=== PATIENT | female | born 1955 | race Caucasian/White ===

== ENCOUNTER 2018-02-17 15:03 | Inpatient (IN) | payer OTHER ==
[~2018-02-17] VITALS: Ht 170.2 cm; Wt 81.6 kg
[2018-02-17 15:17] VITALS: BP_SYST 120
--- NOTE | 2018-02-17 15:23 | NUR ---
Patient to ER bed 04 to gown for evaluation. Side rails up.
--- NOTE | 2018-02-17 15:30 | NUR ---
Patient to ER via triage with c/o LLQ abdominal pain, patient also reports back pain, and pain to both lower extremities. Patient also reports nausea, patient reports symptoms have been going on for the last 3 days. Patient is awake, alert and oriented in no acute distress, vital signs stable, respirations even and unlabored, skin warm and dry to touch. Awaiting evaluation by ER MD, will continue to observe and assess.
[2018-02-17] MEDS ORDERED: NACL 0.9% 1,000 ML IV ONE (15:43)
[2018-02-17] MEDS ORDERED: ONDANSETRON HCL 4 MG/2 ML VIAL IVP ONE (15:45)
--- NOTE | 2018-02-17 15:45 | NUR ---
Dr Bowles at bedside to evaluate patient.
[2018-02-17 16:14] LABS: BASOPHILS % (AUTO) 0.6 % (0.0-2.0); EOSINOPHILS % (AUTO) 0.5 % (0.0-4.0); HEMATOCRIT 27.9 % (36-48); HEMOGLOBIN 8.5 g/dL (12.0-16.0); LYMPHOCYTES # (AUTO) 1.1 K/uL (1.0-5.5); LYMPHOCYTES % (AUTO) 20.1 % (20.5-51.5); MEAN CORPUSCULAR HEMOGLOBIN 21 pg (27-31); MEAN CORPUSCULAR HGB CONC 31 % (32-36); MEAN CORPUSCULAR VOLUME 68 fL (79.0-98.0); MONOCYTES # (AUTO) 0.3 K/uL (0.0-1.0); MONOCYTES % (AUTO) 5.5 % (1.7-9.3); NEUTROPHILS % (AUTO) 73.3 % (40.0-70.0); PLATELET COUNT (AUTO) 353 K/uL (130-430); RED CELL DISTRIBUTION WIDTH 17.8 % (9.0-15.0); WHITE BLOOD COUNT (AUTO) 5.4 K/uL (4.8-10.8)
--- NOTE | 2018-02-17 16:15 | NUR ---
Patient to radiology for films in stable condition via wheelchair.
[2018-02-17 16:21] LABS: CALCIUM 8.9 mg/dL (8.4-11.0); CREATININE 0.89 mg/dL (0.55-1.30); POTASSIUM 4.4 mmol/L (3.5-5.1)
--- NOTE | 2018-02-17 16:25 | NUR ---
Patient back from radiology in stable condition.
[2018-02-17 16:26] LABS: BILIRUBIN,URINE NEGATIVE (NEGATIVE); BLOOD, URINE NEGATIVE (NEGATIVE); CLARITY/URINE CLEAR (CLEAR); COLOR,URINE YELLOW (YELLOW); GLUCOSE,URINE 2+ (NEGATIVE); KETONES,URINE NEGATIVE (NEGATIVE); LEUKOCYTE ESTERASE ,URINE TRACE (NEGATIVE); NITRITE, URINE NEGATIVE (NEGATIVE); PROTEIN URINE NEGATIVE (NEGATIVE); UROBILINOGEN,URINE 0.2 (0.2-1.0)
[2018-02-17 16:27] LABS: ALBUMIN 3.7 g/dL (3.4-4.8); TOTAL BILIRUBIN 1.3 mg/dL (0.0-1.0)
[2018-02-17 16:32] LABS: BACTERIA,URINE MODERATE /HPF (None Seen); HYALINE CASTS, URINE 0-10 /LPF (None Seen); RBC,URINE 0-3 /HPF (0-3)
--- NOTE | 2018-02-17 16:55 | NUR ---
Dr Bowles at bedside speaking with patient/family regarding results and plan of care. Questions answered by Dr Bowles.
--- NOTE | 2018-02-17 17:30 | NUR ---
Patient resting quietly in no acute distress, vital signs stable, respirations even and unlabored, skin warm and dry to touch. Awaiting dispo.
--- NOTE | 2018-02-17 18:30 | NUR ---
Patient resting quietly in no acute distress, went to sign out patient AMA, and now patient states that she is willing to stay for admit now.
[2018-02-17] MEDS ORDERED: NACL 0.9% 1,000 ML IV SCH (19:15)
--- NOTE | 2018-02-17 19:30 | NUR ---
Assessment remains unchanged
--- NOTE | 2018-02-17 19:40 | NUR ---
Patient will be admitted to care of Dr Henyr. Admitted to MS unit. Will go to room 105-A. Belongings list completed. Summary report printed. Report will be given at bedside. Transfer to [facility]. IV present no sign or symptom of infiltration.
[2018-02-17 19:56] VITALS: BP_SYST 120
--- NOTE | 2018-02-17 19:56 | NUR ---
ADMISSION NOTE Received patient from ER via gurney. Patient admitted with diagnosis of Colitis/UTI. Patient is awake, alert, oriented X 4. Patient oriented to hospital room, call light, toileting, pain management and safety-teach back done. Patient informed that CARLOS A Oden will be primary nurse and that their room number is 105A. Personal belongings checked and Belongings List documented. Call light within reach.
[2018-02-17] MEDS ORDERED: metroNIDAZOLE 500 mg/NS 200 ML IV ONE (21:28)
[2018-02-17] MEDS ORDERED: CIPROFLOXACIN LACT 400 MG/D5W 200 ML IV ONE (21:28)
[2018-02-17] MEDS: CIPROFLOXACIN LACT 400 MG/D5W 200 ML IV SCH (21:56)
[2018-02-17] MEDS: metroNIDAZOLE 500 mg/NS 100 ML IV SCH (21:59)
--- NOTE | 2018-02-17 22:06 | NUR ---
Paged Dr. Henry Jefe dialed [phone], s/w Luisana.
[2018-02-17] MEDS ORDERED: MORPHINE 2 MG/ML INJ. SYRINGE IVP PRN (23:00)
[2018-02-17] MEDS ORDERED: LORazepam 2 MG/ML VIAL IVP PRN (23:00)
[2018-02-17] MEDS ORDERED: MORPHINE 4 MG/ML INJ. SYRINGE IVP PRN (23:00)
[2018-02-17] MEDS ORDERED: D5W 1,000 ML IV PRN (23:00)
[2018-02-17] MEDS ORDERED: GLUCOSE 15 GM GEL (in 37.5 GM TUBE) PO PRN ×2 (23:00)
[2018-02-17] MEDS ORDERED: DEXTROSE 50% JECT 50 ML DISP.SYRIN IVP PRN ×2 (23:00)
[2018-02-17] MEDS ORDERED: ONDANSETRON HCL 4 MG/2 ML VIAL IVP PRN (23:00)
[2018-02-17] MEDS: D5/0.45 NS 1,000 ML IV SCH (23:19)
[2018-02-18 00:37] VITALS: BP_SYST 136
--- NOTE | 2018-02-18 01:15 | NUR ---
CONSULT CONSULT CALLED FOR DR. GALAN I SPOKE WITH PAUL RODRIGES REASON FOR CONSULT: UTI REQUESTING CONSULT: DR. RUSS Evans NUMBER I CALLED: [phone]
--- NOTE | 2018-02-18 01:16 | NUR ---
CONSULT CONSULT CALLED FOR DR. GARCIA I SPOKE WITH PAUL RODRIGES REASON FOR CONSULT: COLITIS REQUESTING CONSULT: DR. RUSS Evans
[2018-02-18] MEDS: metroNIDAZOLE 500 mg/NS 100 ML IV SCH ×3 (05:24→21:50)
--- NOTE | 2018-02-18 06:14 | NUR ---
pt,received via the er-dept.pt.had signed ama was to released home.pt.decided to be admitted.pt.presents chronic nam/ll quadrant abdomen pain.pt.presents no nausea.diet status npo:i have explained tot he pt.the npo diet status.pt.presents diabetic hx.pt.presents anemic status;hb.5/hct;27.9.pt.had co dizziness.weakness.i inquired if the pt.presented these symptoms upon the unit.pt.stated she did feel the lightheadedness/weakness. had ordered for the transfusion:2 units:rpbc clarification;to be held.pt.was originally ordered to receive the maintanance iv fluids:ns.; was paged.i apprised that the pt.presents diabetic hx; ordered blood glucose assessed ac/hs.p apprised cristiana the pt.did not utilize insulin:no insulin sliding scale ordered. ordered iv fluids:d5/45 ns:2/t npo diet status;diabetic hx. pt.is ambulatory;w/out assistance;steady gait.pt.supervised gait to the restroom.i have initiated the administration iv fluids:d5/45 ns,the administration of cipro/flagyl initial doses.no c/o pain,nausea.o2 @room air;o2 -sat%=98%.call light/telephone placed w/in the pt's reach.
[2018-02-18 06:28] LABS: HEMATOCRIT 25.6 % (36-48); HEMOGLOBIN 7.7 g/dL (12.0-16.0); MEAN CORPUSCULAR HEMOGLOBIN 21 pg (27-31); MEAN CORPUSCULAR HGB CONC 30 % (32-36); MEAN CORPUSCULAR VOLUME 68 fL (79.0-98.0); PLATELET COUNT (AUTO) 305 K/uL (130-430); RED BLOOD CELL COUNT(AUTO) 3.75 MIL/uL (4.2-6.2); RED CELL DISTRIBUTION WIDTH 17.5 % (9.0-15.0); WHITE BLOOD COUNT (AUTO) 5.1 K/uL (4.8-10.8)
[2018-02-18 06:48] LABS: CALCIUM 8.2 mg/dL (8.4-11.0); CREATININE 0.65 mg/dL (0.55-1.30); POTASSIUM 3.2 mmol/L (3.5-5.1)
--- NOTE | 2018-02-18 07:20 | NUR ---
Opening Note: Patient laying in bed resting, patient denies abdominal pain and discomfort. Breathing is even and unlabored with no distress noted. IV patent and intact. Safety precautions in place; bed in lowest position, wheels locked, side rails x3, bed alarm activated and call light within reach. No current needs. Will continue to monitor.
[2018-02-18 08:43] VITALS: BP_SYST 137
[2018-02-18 08:43] LABS: BAND % (MANUAL) 2 % (0-6); BASOPHILS % (MANUAL) 0 % (0-2); EOSINOPHILS % (MANUAL) 3 % (0-7); LYMPHOCYTES % (MANUAL) 47 % (20-46); MONOCYTES % (MANUAL) 3 % (0-11)
[2018-02-18] MEDS: CIPROFLOXACIN LACT 400 MG/D5W 200 ML IV SCH ×2 (08:45→20:14)
[2018-02-18] MEDS: D5/0.45 NS 1,000 ML IV SCH ×2 (08:46→18:17)
--- NOTE | 2018-02-18 10:05 | NUR ---
Rounding: Patient laying in bed resting. Patient denies pain and discomfort. No current needs. Will continue to monitor.
[2018-02-18] MEDS ORDERED: GOLYTELY / COLYTE SOLUTION 4 LITERS PO ONE (11:00)
[2018-02-18] MEDS ORDERED: BISACODYL 5 MG TABLET.DR (DULCOLAX) PO ONE (11:00)
--- NOTE | 2018-02-18 12:01 | NUR ---
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 Patient speaks Botswanan only. Pt stated, she will be qualify for Medicare with [employer] [facility] by April, but meantime requesting Medi-Hanny and social security benefits. She has no income at all and lives with her other 3 adult children. She has 3 other adult children who are well and alive. (One of 7 children has ). She goes to [place] for her Diabetic medications, Glipizide. She states she has DM II, HTN, and heart problem. She stated she was given Survivor's Benefits and Social Security Benefits November and December 2017 after her but got a letter form Social Security that she did not qualify and benefits stopped since January 2018. Informed YANA Saldivar and she stated Sha, [facility] Liaison, has been made aware and will reach out and contact pt. Pt informed of this and she verbalized understanding and is thankful to staff. Addendum: 02/18/18 at 1220 by Mary Gomez RN Pt and family requesting DPOA form. Form provided in Botswanan and in Turkish to pt.
--- NOTE | 2018-02-18 12:09 | NUR ---
Rounding: Patient laying in bed resting. Patient denies pain and discomfort. Breathing is even and unlabored with no distress noted. Morning medications tolerated well. No current needs. Will continue to monitor.
[2018-02-18 12:17] VITALS: BP_SYST 153
--- NOTE | 2018-02-18 14:06 | NUR ---
IV RE-INSERTION: Complaining of pain to IV site. Restarted on right hand. Successful after 1 attempts. Resumed current IVF of D51/2NS and regulated @ 100 per hour. Will observe for any signs of infiltration.
--- NOTE | 2018-02-18 16:15 | NUR ---
Rounding: Patient laying in bed resting. Daughter at bedside. Patient denies pain and discomfort. Breathing is even and unlabored with no distress noted. No distress noted. Safety precautions in place and call light within reach. No current needs. Will continue to monitor.
[2018-02-18 16:35] VITALS: BP_SYST 133
--- NOTE | 2018-02-18 18:49 | NUR ---
Closing Note: Patient laying in bed resting, patient denies abdominal pain and discomfort. Breathing is even and unlabored with no distress noted. IV patent and intact running IV fluids per MD order. Safety precautions in place; bed in lowest position, wheels locked, side rails x3, bed alarm activated and call light within reach. All needs met. Will endorse plan of care to NOC, nurse.
[2018-02-18 19:35] VITALS: BP_SYST 145
--- NOTE | 2018-02-18 19:35 | NUR ---
OPENING NOTE Received bedside sbar report from selwyn RNFelicia. Patient is awake/alert/oriented with her family members bedside. No acute distress noted: 145/78 68 16 98% (room air) 98.2 and complains of 0/10 pain at this time. IV site noted to right hand 22g, infusing D51/2NS @ 100ml/hr. Patency verified with good blood return/flush. Bowel prep noted and in process. NPO after midnight orders noted. Updated whiteboard, discussed plan of care, introduced myself. Bed to lowest position, 3 side rails raised, call light within reach, bed alarm activated.
--- NOTE | 2018-02-18 20:21 | NUR ---
Blood Glucose : 193 (No correction given or ordered, patient refuses insulin sliding scale).
--- NOTE | 2018-02-18 20:38 | NUR ---
PAGE CALLED FOR Nathan MANZANO SPOKE TO CONCHA, DIALED [phone].
--- NOTE | 2018-02-18 20:50 | NUR ---
Potassium 3.2 - Received call from Dr. Henry. Advised him that patients potassium is 3.2. ordered: KCHL 40MEQ PO Once. Order was read back, verified and entered.
[2018-02-18] MEDS ORDERED: POTASSIUM CHLORIDE 20 MEQ TAB.PRT.SR PO ONE (21:00)
--- NOTE | 2018-02-18 21:30 | NUR ---
Assisted patient to bedside commode, then safely back into bed.
--- NOTE | 2018-02-18 21:55 | NUR ---
Paged Dr. Danielle to clarify if tap water enema (until clear) order is needed.
--- NOTE | 2018-02-18 21:58 | NUR ---
PAIN MEDICATION Patient complains of 4/10 headache. Administered morphine 2mg as ordered by physician for moderate pain. Will followup with patient to ensure effective pain management.
--- NOTE | 2018-02-18 22:05 | NUR ---
Tap water enema order clarification - Received return call from Dr. Lozano There is no order for tap water enema until clear (per bowel prep protocol.) Clarified that he would like this order, and he does. Order read back, verified and entered.
--- NOTE | 2018-02-18 22:46 | NUR ---
ROUNDS Patient is awake/alert/oriented and laying in bed. Reminded patient to keep drinking Golytely bowel prep. At this point she is approx 3/4 done Golytely, refilled her cups. No shortness of breath or labored breathing noted. IV site is infusing D51/2NS @ 100ml/hr with no signs of redness or infiltration. Bed to lowest position, 3 side rails up, call light within reach, bed alarm activated. Will continue to monitor patient.
[2018-02-19] VITALS (7 sets, daily range): BP systolic 141–181
--- NOTE | 2018-02-19 00:30 | NUR ---
Elevated BP: MANAGER [place] informed me that patient's BP is 181/76. Saw patient she is on commode and complains of headache, but is having a bowel movement. Informed patient I would re-take BP once she was back into bed. -- Assisted patient safely back to bed, waited 5 minutes and retook BP: 151/75. Will continue to monitor patient.
--- NOTE | 2018-02-19 01:58 | NUR ---
ROUNDS Patient is awake/alert/oriented, watching television. Checked latest bowel movement in commode, mostly clear/yellow at this time. She does not need anything at this time. Respirations are equal/non-labored @ 14/min. IV site is infusing D51/2NS @ 100ml/hr with no signs of redness or infiltration. Bed to lowest position, 3 side rails up, call light within reach, bed alarm activated. Will continue to monitor patient.
--- NOTE | 2018-02-19 03:49 | NUR ---
ROUNDS Patient is resting comfortably, eyse closed but easily arouses to light stimulation. Symmetric rise and fall of chest with respirations @ 16/min. IV site is infusing D51/2NS @ 100ml/hr with no signs of redness or infiltration. Bed to lowest position, 3 side rails up, call light within reach, bed alarm activated. Will continue to monitor patient.
--- NOTE | 2018-02-19 04:45 | NUR ---
(1) Tap water enema administered - patient is clear, previous bowel movement in bedside are clear since 2am. Patient tolerated well.
--- NOTE | 2018-02-19 05:53 | NUR ---
Blood Glucose : 178 (No correction given or ordered, patient refuses insulin sliding scale).
[2018-02-19] MEDS: metroNIDAZOLE 500 mg/NS 100 ML IV SCH ×2 (05:54→12:58)
[2018-02-19] MEDS ORDERED: NEU300 PO ×2 (06:16→17:46)
[2018-02-19 06:47] LABS: ANION GAP 7 (5-15); CALCIUM 8.3 mg/dL (8.4-11.0); CHLORIDE 105 mmol/L (98-107); CREATININE 0.61 mg/dL (0.55-1.30); GLUCOSE 198 mg/dL (70-99); POTASSIUM 3.4 mmol/L (3.5-5.1); SODIUM SERUM 137 mmol/L (136-145); UREA NITROGEN, BLOOD 3 mg/dL (8-21)
[2018-02-19] MEDS ORDERED: MIDAZOLAM HCL 5 MG/5 ML VIAL ONE (06:56)
[2018-02-19] MEDS ORDERED: SIMETHICONE 40 MG/0.6 ML ML ONE (06:56)
[2018-02-19 07:00] LABS: BASOPHILS % (AUTO) 0.9 % (0.0-2.0); EOSINOPHILS # (AUTO) 0.1 K/uL (0.0-0.4); EOSINOPHILS % (AUTO) 2.6 % (0.0-4.0); MEAN CORPUSCULAR HEMOGLOBIN 21 pg (27-31); MONOCYTES # (AUTO) 0.4 K/uL (0.0-1.0); NEUTROPHILS # (AUTO) 1.4 K/uL (1.8-7.7)
[2018-02-19 07:04] LABS: GFR AFRICAN AMERICAN 127 mL/min (>90)
[2018-02-19 07:10] LABS: HEMATOCRIT 23.6 % (36-48); HEMOGLOBIN 7.3 g/dL (12.0-16.0); LYMPHOCYTES # (AUTO) 1.9 K/uL (1.0-5.5); LYMPHOCYTES % (AUTO) 49.7 % (20.5-51.5); MEAN CORPUSCULAR HGB CONC 31 % (32-36); MEAN CORPUSCULAR VOLUME 68 fL (79.0-98.0); MONOCYTES % (AUTO) 9.3 % (1.7-9.3); NEUTROPHILS % (AUTO) 37.5 % (40.0-70.0); PLATELET COUNT (AUTO) 275 K/uL (130-430); RED BLOOD CELL COUNT(AUTO) 3.48 MIL/uL (4.2-6.2); RED CELL DISTRIBUTION WIDTH 17.3 % (9.0-15.0); WHITE BLOOD COUNT (AUTO) 3.8 K/uL (4.8-10.8)
--- NOTE | 2018-02-19 07:17 | NUR ---
CLOSING NOTE Bedside sbar report given to dayshift Felicia STRAUSS Patient is awake/alert/oriented, watching television. All needs/interventions/expectations met by nightshift RN. Transfer of care successful.
[2018-02-19 07:19] LABS: C-REACTIVE PROTEIN QUANT < 0.2 mg/dL (0-0.5)
--- NOTE | 2018-02-19 07:20 | NUR ---
Opening Note: Patient off of floor, went to GI for EGD/Colonoscopy.
[2018-02-19 07:59] LABS: ERYTHROCYTE SEDIMENTATION RATE 24 MM/HR (0-20)
[2018-02-19] MEDS: MIDAZOLAM HCL 5 MG/5 ML VIAL ONE ×3 (08:25→08:35)
[2018-02-19] MEDS: fentaNYL CITRATE/PF 100 MCG/2 ML AMP ONE ×3 (08:25→08:35)
[2018-02-19] MEDS ORDERED: GABAPENTIN 300 MG CAPSULE PO SCH (09:00)
--- NOTE | 2018-02-19 10:05 | NUR ---
Patient back on floor: Patient back on floor. Patient laying in bed resting, patient denies abdominal pain and discomfort. Breathing is even and unlabored with no distress noted. IV patent and intact. Safety precautions in place; bed in lowest position, wheels locked, side rails x3, bed alarm activated and call light within reach. Vital signs stable. No current needs. Will continue to monitor.
[2018-02-19] MEDS: CIPROFLOXACIN LACT 400 MG/D5W 200 ML IV SCH (10:06)
--- NOTE | 2018-02-19 11:55 | NUR ---
Rounding: Patient laying in bed resting. Patient denies pain and discomfort. Breathing is even and unlabored with no distress noted. Morning medications tolerated well. Safety precautions in place. No current needs. Will continue to monitor.
[2018-02-19] MEDS: D5/0.45 NS 1,000 ML IV SCH (12:58)
--- NOTE | 2018-02-19 14:25 | NUR ---
Rounding: Patient laying in bed resting. Family at bedside. NO distress noted. Will continue to monitor.
--- NOTE | 2018-02-19 15:14 | NUR ---
Paging Dr. Henry: Paging Dr. Henry, awaiting callback.
[2018-02-19] MEDS ORDERED: BENZOCAINE 20% 0.5mL UD SPRAY MM ONE (15:30)
--- NOTE | 2018-02-19 16:02 | NUR ---
Rounding: Patient laying in bed resting. Family at bedside. No pain or discomfort. Breathing is even and unlabored with no distress noted. Safety precautions in place. No current needs. Will continue to monitor.
--- NOTE | 2018-02-19 16:18 | NUR ---
Spoke to Dr. Henry: Spoke to Dr. Henry, orders received for blood transfusion. Dr. Henry made aware of high blood sugar, no sliding scale orders. Orders received for CCHO diet and discontinuing IV fluids. Orders to be entered by RN.
--- NOTE | 2018-02-19 17:10 | NUR ---
BT INITIATION: Consent signed per patient agreeing to administration of blood. Blood has been type and crossmatched. Blood sent from blood bank. Information on unit of blood checked against patient wristband at bedside by two nurses. All information matches. Patient or responsible libertarian informed of potential complications associated with blood transfusion. Informed of possible transfusion reaction symptoms. Aware of need to notify nurse at once of itching, shortness of breath, flushing, feeling of impending doom, or other symptoms not previously present. Vital signs taken within 5 minutes prior to initiation of transfusion. RN will remain with patient for first 15 minutes of transfusion at which time vital signs will be re-assessed.
--- NOTE | 2018-02-19 17:25 | NUR ---
15 minutes after blood transfusion initiation: 15 minutes after blood transfusion initiation, patient in stable condition, vital signs stable.
[2018-02-19] MEDS ORDERED: POTASSIUM CHLORIDE 20 MEQ TAB.PRT.SR PO ONE (17:45)
[2018-02-19] MEDS ORDERED: GLIP5TAB13 PO (17:46)
[2018-02-19] MEDS ORDERED: CIPR-211 PO (17:46)
--- NOTE | 2018-02-19 18:45 | NUR ---
Closing Note: Patient laying in bed resting, patient denies abdominal and back pain and discomfort. Breathing is even and unlabored with no distress noted. No signs of rash. IV patent and intact, patient receiving blood transfusion. Safety precautions in place; bed in lowest position, wheels locked, side rails x3, bed alarm activated and call light within reach. All needs met. Will endorse plan of care to NOC, nurse.
--- NOTE | 2018-02-19 19:15 | NUR ---
OPENING NOTE Received bedside sbar report from selwyn RNFelicia. Patient is awake/alert/oriented with her family members bedside and blood transfusion currently infusing. No acute distress noted IV site noted to left hand 22g, with 1u prbc transfusing as ordered. Updated whiteboard, discussed plan of care, introduced myself. Bed to lowest position, 3 side rails raised, call light within reach, bed alarm activated.
--- NOTE | 2018-02-19 19:45 | NUR ---
Blood transfusion has been completed. 151/66 64 17 97.3 97% (room air) and patient complains of no pain or discomfort. No reaction noted and vital signs remained stable throughout transfusion.
--- NOTE | 2018-02-19 20:30 | NUR ---
Discharge All discharge paperwork, prescriptions and education given to patient as well as her daughter Lyla (who will take patient home). All questions/concerns were answered and paperwork was signed and filed in chart. All belongings checked and sent home with patient. Patient wheeled out to parking lot via wheelchair by ALEIDA Coley as her daughter went to pull her vehicle around.
== END 2018-02-19 20:35 | disposition home or self-care (01) | DRG 872 ==
LOC: SED 15:03 → SMU 19:12
PROVIDERS: ADMIT Preventive Medicine Preventive Medicine/Occupational Environmental Medicine; ATTEND Preventive Medicine Preventive Medicine/Occupational Environmental Medicine
PROC: 0DBP8ZX Excision of Rectum, Via Natural or Artificial Opening Endoscopic, Diagnostic (ICD-10-PCS; 2018-02-19)
PROC: 0DB98ZX Excision of Duodenum, Via Natural or Artificial Opening Endoscopic, Diagnostic (ICD-10-PCS; principal; 2018-02-19 07:40)
PROC: 0DB68ZX Excision of Stomach, Via Natural or Artificial Opening Endoscopic, Diagnostic (ICD-10-PCS; 2018-02-19 07:40)
DX: A41.9 Sepsis, unspecified organism (principal); E87.0 Hyperosmolality and hypernatremia; E87.1 Hypo-osmolality and hyponatremia; N39.0 Urinary tract infection, site not specified; B96.20 Unspecified Escherichia coli [E. coli] as the cause of diseases classified elsewhere; D50.9 Iron deficiency anemia, unspecified; D63.8 Anemia in other chronic diseases classified elsewhere; E11.22 Type 2 diabetes mellitus with diabetic chronic kidney disease; E11.65 Type 2 diabetes mellitus with hyperglycemia; E66.01 Morbid (severe) obesity due to excess calories; E83.51 Hypocalcemia; E83.52 Hypercalcemia; E87.6 Hypokalemia; K59.00 Constipation, unspecified; K52.9 Noninfective gastroenteritis and colitis, unspecified; K59.8 Other specified functional intestinal disorders; K62.1 Rectal polyp; N18.9 Chronic kidney disease, unspecified; Z68.28 Body mass index [BMI] 28.0-28.9, adult; Z98.891 History of uterine scar from previous surgery; Z79.899 Other long term (current) drug therapy
CPT/HCPCS: 36415; 43239; 45380; 80048; 80053; 81000-TC; 82962; 83690-TC; 85007; 85025; 85027; 85651-TC; 86140; 86886; 86900; 86901; 86920; 87040-TC; 87081; 87086; 87186-TC; 88305; 88313; 88341; 88342; 88361; 96361; 96374; 99285; J0744; J2250; J2270; J2405; J3010; J3490; J7030; J7050; P9021